=== PATIENT | male | born 1965 | race Caucasian/White ===

== ENCOUNTER → 2020-07-26 08:49 | Outpatient (CLI) | payer BC, SELFPAY ==
--- NOTE | ~2020-07-26 | CT_ITS ---
EXAMINATION: CT soft tissue neck wo/w con EXAM DATE: 07/26/2020 09:51 INDICATION: Sore throat on the left side. TECHNIQUE: Spiral CT of the neck was performed without and then with intravenous injection of 100 mL Omnipaque 350. Axial, coronal and sagittal images were reviewed. The dose-length product (DLP) for this examination was 1189.52 mGy-cm. The exposure was tailored according to patient size (auto mA e xposure control), and iterative reconstruction (ASIR) was used as additional dose reduction technique . There is no prior study for comparison. FINDINGS: Dense metallic artifact from dental hardware. There is a 5 mm right-sided laryngocele. The thyroid gland is unremarkable. The submandibular and parotid glands are symmetric. There is no c ervical lymphadenopathy. There are no masses identified. The superior mediastinum is unremarkable . The airway is unremarkable. Parapharyngeal and pre-glottic fat planes are preserved. The opac ified vasculature is patent. The orbits are unremarkable. There is moderate bilateral ethmoid and maxillary sinus mucoperiosteal thickening, mild in the sphenoid sinuses. Lung apices are clear. Mi ld cervical spondylosis. IMPRESSION: 1. Moderate maxillary and ethmoid mucoperiosteal thickening. 2. Tiny right-sided laryngocele. Reviewed, dictated and finalized at location B.
== END ==
PROVIDERS: PCP Internal Medicine
DX: R13.10 Dysphagia, unspecified (principal); J02.9 Acute pharyngitis, unspecified; R93.0 Abnormal findings on diagnostic imaging of skull and head, not elsewhere classified
CPT/HCPCS: 70492; Q9967